=== PATIENT | female | born 2000 | race Caucasian/White ===

== ENCOUNTER 2022-06-28 10:56 | Emergency (ER) | payer OTHER, SELFPAY ==
[2022-06-28 10:57] VITALS: BP 132/96; PULSE 80; RESP 18; TEMP 36.9; O2SAT 100; BMI 26.4
--- NOTE | 2022-06-28 11:14 | EDS_ITS ---
HPI <ALEX Anderson - Last Filed: 06/28/22 12:14> History of Present Illness Chief Complaint: General Illness Narrative Narrative: 21-year-old female states last week she had decreased appetite 1 day and did not eat anything. The next day she transiently felt lightheaded in the shower. The next morning in the shower she vomited and she is continues to have morning nausea and sensitivity to smells but is able to eat and drink. She has no abdominal pain and is having normal bladder and bowel movements. She had very light bleeding for 2 days last week that she thought was her menstrual cycle but now she is concerned she is . She is on OCPs. She said she was not feeling well at work so her boss had her come in for evaluation. PFSH <ALEX Anderson - Last Filed: 06/28/22 12:14> PFSH Medical History no medical history Home Medications ondansetron 4 mg disintegrating tablet 4 mg PO Q8H PRN PRN Nausea #10 tabs 06/28/22 [Rx Last Taken Unknown] Allergy/AdvReac Type Severity Reaction Status Date / Time No Known Allergies Allergy Verified 08/31/17 18:04 Surgical History no surgical history Social History (Updated 07/19/19 @ 09:16 by ALEX Lyles) Smoking Status: Never smoker ROS <ALEX Anderson - Last Filed: 06/28/22 12:14> ROS ED ROS Narrative Constitutional: Negative for fever, chills, malaise. Eyes: Negative for visual change. ENT: Negative for sore throat, ear pain, rhinorrhea. CVS: Negative for palpitations, chest pain, syncope. Respiratory: Negative for shortness of breath, cough, orthopnea. GI: Positive for nausea, vomiting negative for abdominal pain, hematemesis, diarrhea, constipation, melena, hematochezia. : Negative for dysuria, hematuria or frequency. Neuro: Negative for headache. Skin: Negative for rash, abscess, or wound. Musc: Negative for joint pain, swelling, trauma. Heme: Negative for easy bruising, bleeding, lymphadenopathy. EXAM <LAEX Anderson - Last Filed: 06/28/22 12:14> Physical Exam Narrative Exam Narrative: CONST: Patient sitting in no acute distress. EYES: Normal inspection. ENT: Normal inspection, moist mucous membranes. NECK: Normal inspection. RESP: No respiratory distress, CTAB. CVS: Regular rate and rhythm, no murmur, no gallop. ABD: Soft and nontender, no guarding or rebound, nondistended, no hepatosplenomegaly. SKIN: Color normal, no rash, warm, dry, intact. EXTREMITIES: Normal appearance, no pedal edema. NEURO: Oriented x4. PSYCH: Normal affect. Const Vital Signs: 06/28/22 10:57 Temperature 98.5 F Temperature Source Temporal Pulse Rate 80 Respiratory Rate 18 Blood Pressure 132/96 H Blood Pressure Mean 108 Pulse Ox 100 Oxygen Delivery Method Room Air <Dr. Liam Madison DO - Last Filed: 06/28/22 13:24> Physical Exam Const Vital Signs: 06/28/22 10:57 Temperature 98.5 F Temperature Source Temporal Pulse Rate 80 Respiratory Rate 18 Blood Pressure 132/96 H Blood Pressure Mean 108 Pulse Ox 100 Oxygen Delivery Method Room Air [facility] <ALEX Anderson - Last Filed: 06/28/22 12:14> [facility] Narrative Medical decision making narrative: Patient is back symptoms including morning nausea and smell sensitivity. She felt lightheaded last week with no syncope. No chest pain or shortness of breath. Today she appears well and nontoxic and is asymptomatic. Her vital signs are normal. Her medical exam is benign. A urine test is negative and at this point I do not feel further emergent work-up is indicated. Patient was prescribed Zofran to take as needed and discharged in stable condition. Diagnosis 1. Intermittent nausea and vomit Lab Data Attestation: I reviewed the patient's lab results. Labs: Laboratory Results - last 24 hr 06/28/22 11:30 Urine Test Negative <Dr. Liam Madison DO - Last Filed: 06/28/22 13:24> [facility] Narrative Medical decision making narrative: Patient is back symptoms including morning nausea and smell sensitivity. She felt lightheaded last week with no syncope. No chest pain or shortness of breath. Today she appears well and nontoxic and is asymptomatic. Her vital signs are normal. Her medical exam is benign. A urine test is negative and at this point I do not feel further emergent work-up is indicated. Patient was prescribed Zofran to take as needed and discharged in stable condition. Diagnosis 1. Intermittent nausea and vomit Attending note: Patient seen and evaluated with finishing supervisor. I perform my own [id number] evaluation. I agree with the plan of work-up. Intermittent morning nausea with increasing sensitivity to smell. Lightheaded for the past week. No chest pains or shortness of breath. Last menstrual period a week ago. She had to leave work today due to not feeling well. Currently asymptomatic. Requested a test. No history of pregnancies in the past. Exam alert or x3 no focal neurological deficits soft abdomen. test obtained returned negative. She is on control however discussed if any concerns for recheck of home test in 1 week. Prescription for Zofran to use as needed. All questions were answered. Lab Data Labs: Laboratory Results - last 24 hr 06/28/22 11:30 Urine Test Negative Discharge Plan Triage Chief Complaint: General Illness ED Midlevel Provider: Hilary Lacey ED Provider: Liam Madison Dx/Rx/DC Orders Clinical Impression: Nausea & vomiting, Light-headed Prescriptions: New ondansetron 4 mg tablet,disintegrating 4 mg PO Q8H PRN PRN (Reason: Nausea) Qty: 10 0RF Stand Alone Forms: ED Work / School Excuse Primary Care Provider: Care Physician,No Primary Referrals: Nolan Livingston MD [Med Staff - Fine Artist] - Kasandra Cote [Non-Staff] - Disposition Disposition: Home, Self Care Discharge Date/Time: 06/28/22 12:39
[2022-06-28 11:43] LABS: Internal QC Validated? YES +Cl - CLEAR BKGD; Pregnancy, Urine Negative Negative
--- NOTE | 2022-06-28 12:38 | ED.RN ---
had Hilary JOHNSON come into room to discuss discharge and POC with mother. support provided at dc. understandable to POC.
== END 2022-06-28 12:39 | disposition home or self-care (01) ==
LOC: ED 11:54
PROVIDERS: Physician Assistant; Emergency Provider Emergency Medicine; Visit Provider Emergency Medicine
DX: R11.2 Nausea with vomiting, unspecified (principal); R42 Dizziness and giddiness
CPT/HCPCS: 81025; 99282